=== PATIENT | female | born 1995 | race Two or more races ===

== ENCOUNTER 2024-03-11 00:15 | Emergency (ER) | payer SELFPAY ==
[2024-03-11 00:32] VITALS: BP 146/96; O2SAT 100
--- NOTE | 2024-03-11 01:56 | ED Physician Documentation ---
PD HPI HEAD INJURY - Stated complaint Stated Complaint: HIT HEAD - Chief complaint Chief Complaint: Trauma Hd/Nk - History obtained from History obtained from: Patient - Additional information Additional information: Patient comes to the emergency department chief complaint of head injury yesterday and dizziness, nausea and, and blurred vision since. She states that she had been doing a little bit of drinking but did not feel like she was heavily drunk. She is not sure how she fell but she ended up falling and hitting her head she thinks on the ground. She can feel where she hit back on the left posterior aspect. She states she is sore through the musculature of her left neck extending to her shoulder but does not feel the shoulder joint itself is injured. She denies any other complaints at this time. She states she went to work today and felt dizzy and nauseated and her boss wanted her to come in, as did her family. The patient states she vomited a couple times today but was able to hold down quite a bit of fluids in between. She took some nausea medicine at home before coming and states she is feeling quite a bit better now. No other complaints at this time. PD PAST MEDICAL HISTORY - Past Medical History Past Medical History: No - Past Surgical History Past Surgical History: No - Present Medications Home Medications: Ambulatory Orders Medication Instructions Recorded Confirmed No Known Home Medications 03/11/24 03/11/24 - Allergies Allergies/Adverse Reactions: Allergies Allergy/AdvReac Type Severity Reaction Status Date / Time No Known Drug Allergies Allergy Verified 03/11/24 00:31 - Social History Does the pt smoke?: No Smoking Status: Never smoker PD ED PE NORMAL - Vitals Vital signs reviewed: Yes - General General: Alert and oriented X 3, No acute distress, Well developed/nourished - HEENT HEENT: PERRL, EOMI, Moist mucous membranes, Other (Mild tenderness palpation in the superior posterior left scalp. No bony deformity.) - Neck Neck: Supple, no meningeal sign, No bony TTP, Other (Tenderness palpation over the left trapezius distribution.) - Cardiac Cardiac: RRR, No murmur - Respiratory Respiratory: No respiratory distress, Clear bilaterally - Abdomen Abdomen: Soft, Non tender, Non distended - Derm Derm: Normal color, Warm and dry, No rash - Extremities Extremities: No deformity, No edema - Neuro Neuro: Other (Alert, grossly oriented, grossly intact.) - Psych Psych: Normal mood, Normal affect Results - Vitals Vitals: Vital Signs - 24 hr 03/11/24 00:27 Temperature 36.0 C L Heart Rate 75 Respiratory 16 Rate Blood Pressure 146/96 H O2 Saturation 100 Oxygen O2 Source Room air PD Medical Decision Making - ED course Complexity details: considered differential, d/w patient ED course: I discussed with the patient that her symptoms are most consistent with what we would call a "concussion" and that I do not feel she is likely to have intracranial hemorrhage at this point. We have discussed symptomatic man agement, the expected timeline for symptoms, and the usual indications for return. Departure - Departure Disposition: 01 Home, Self Care Clinical Impression: Closed head injury Qualifiers: Encounter type: initial encounter Qualified Code(s): S09.90XA - Unspecified injury of head, initial encounter Condition: Stable Instructions: ED Head Injury Closed Comments: Your symptoms are consistent with concussion, a jarring of the brain that happens during a closed head injury and results in headache, nausea, drowsiness, mild imbalance, blurred vision, and/or fatigue for anywhere from a few days to a week or two afterward. For the most part, the symptoms just have to run their course, but it is helpful to get rest and plenty of fluids to drink. You may take ibuprofen and/or Tylenol for any headache or other aches and pains. Please follow-up with your primary doctor for any further concerns. If you begin to feel like you are getting much much worse, please return to the emergency department. Forms: PCP List, Activity restrictions
== END 2024-03-11 02:07 | disposition home or self-care (01) ==
LOC: ED 00:15
DX: S09.90XA Unspecified injury of head, initial encounter (principal); W19.XXXA Unspecified fall, initial encounter
CPT/HCPCS: 99281; 99282